=== PATIENT | female | born 1940 | race Hispanic/Latino ===

== ENCOUNTER → 2019-08-31 | Outpatient (CLI) | payer OTHER ==
[2019-08-31] MEDS: REGADENOSON 0.4 MG/5 ML PF SYG IVP SCH (12:12)
== END | disposition home or self-care (01) ==
LOC: RAH 09:06
PROVIDERS: ATTEND Internal Medicine Cardiovascular Disease
DX: R06.02 Shortness of breath (principal)
CPT/HCPCS: 78452; 93017; 96374; A9500 ×2; J2785

== ENCOUNTER 2020-11-12 18:33 | Emergency (ER) | payer MEDICARE, OTHER ==
[2020-11-12] MEDS ORDERED: MECLIZINE HCL 25 MG TABLET ONE (19:39)
[2020-11-12] MEDS ORDERED: ACETAMINOPHEN EXTRA STRENGTH 500 MG TABLET ONE (19:39)
[2020-11-12 19:43] LABS: BASOPHILS % (AUTO) 0.6 % (0.0-5.0); EOSINOPHILS % (AUTO) 2.1 % (0.0-8.0); LYMPHOCYTES % (AUTO) 23.7 % (21.0-51.0); MEAN CORPUSCULAR VOLUME 97.1 fL (79-99); MONOCYTES % (AUTO) 7.3 % (3.0-13.0); PLATELET COUNT (AUTO) 228 K/uL (130-400); RED BLOOD CELL COUNT(AUTO) 4.12 MIL/uL (4.00-5.50); RED CELL DISTRIBUTION WIDTH 14.6 % (11.0-15.5)
[2020-11-12 19:52] LABS: CREATININE 0.8 mg/dL (0.5-1.5); POTASSIUM 4.8 mmol/L (3.5-5.1)
[2020-11-12 20:01] LABS: ALBUMIN 3.7 g/dL (3.5-5.0); BILIRUBIN,TOTAL 0.3 mg/dL (0.2-1.0); TOTAL PROTEIN, SERUM 7.7 g/dL (6.0-8.3)
== END 2020-11-12 20:50 | disposition home or self-care (01) ==
LOC: EDH 18:33
DX: R42 Dizziness and giddiness (principal); R07.89 Other chest pain; F41.9 Anxiety disorder, unspecified; I10 Essential (primary) hypertension; R53.1 Weakness; E03.9 Hypothyroidism, unspecified; E78.00 Pure hypercholesterolemia, unspecified; I25.10 Atherosclerotic heart disease of native coronary artery without angina pectoris; Z90.710 Acquired absence of both cervix and uterus; Z90.49 Acquired absence of other specified parts of digestive tract
CPT/HCPCS: 36415; 70450; 71045; 80053; 84484; 85025; 93005

== ENCOUNTER 2021-08-13 09:03 | Inpatient (IN) | payer MEDICARE ==
[~2021-08-13] VITALS: Ht 165.1 cm; Wt 93.9 kg
[2021-08-13 09:32] LABS: BASOPHILS % (AUTO) 0.4 % (0.0-5.0); EOSINOPHILS % (AUTO) 0.1 % (0.0-8.0); HEMATOCRIT 42.7 % (36-48); LYMPHOCYTES % (AUTO) 13.3 % (21.0-51.0); MEAN CORPUSCULAR HEMOGLOBIN 31.2 pg (27.0-33.0); MEAN CORPUSCULAR HGB CONC 31.6 g/dL (32.0-36.0); MEAN CORPUSCULAR VOLUME 98.6 fL (79-99); MONOCYTES % (AUTO) 10.7 % (3.0-13.0); NEUTROPHILS % (AUTO) 75.4 % (40.0-77.0); PLATELET COUNT (AUTO) 191 K/uL (130-400); RED BLOOD CELL COUNT(AUTO) 4.33 MIL/uL (4.00-5.50); RED CELL DISTRIBUTION WIDTH 14.8 % (11.0-15.5); WHITE BLOOD COUNT (AUTO) 7.3 K/uL (4.8-10.8)
[2021-08-13 09:41] LABS: CREATININE 1.2 mg/dL (0.5-1.5)
[2021-08-13 09:46] LABS: ALBUMIN 3.7 g/dL (3.5-5.0); BILIRUBIN,TOTAL 0.3 mg/dL (0.2-1.0)
[2021-08-13 09:56] LABS: B-TYPE NATRIURETIC PEPTIDE 138 pg/mL (0-100)
[2021-08-13 10:31] LABS: INR 1.05 (0.85-1.15); PROTHROMBIN TIME 11.4 SEC (9.6-11.6)
[2021-08-13] MEDS ORDERED: ENOXAPARIN SODIUM 100 MG/1 ML SQ SCH (12:00)
[2021-08-13] MEDS: ASPIRIN 81MG CHEW TAB PO SCH (12:19)
[2021-08-13] MEDS ORDERED: ONDANSETRON 4MG INJ IVP PRN (14:00)
[2021-08-13] MEDS: TRAMADOL HCL 50 MG TABLET PO SCH (15:00)
[2021-08-13] MEDS ORDERED: AMLO-257 PO (15:16)
[2021-08-13] MEDS ORDERED: OMEP40CA21 PO (15:17)
[2021-08-13] MEDS ORDERED: LOSA100T58 PO (15:17)
[2021-08-13] MEDS ORDERED: ROSU5TAB12 PO (15:18)
[2021-08-13] MEDS ORDERED: OXYB5TAB15 PO (15:18)
[2021-08-13] MEDS ORDERED: LEVO100 PO (15:20)
[2021-08-13] MEDS ORDERED: TRAM50TA4 PO (15:20)
[2021-08-13] MEDS ORDERED: ISOS10TA8 PO (15:21)
[2021-08-13] MEDS ORDERED: METO-391 PO (15:22)
[2021-08-13] MEDS ORDERED: CITA-106 PO (15:22)
[2021-08-13] MEDS ORDERED: PHARMACY COMMUNICATION MISC SCH (16:30)
[2021-08-13] MEDS: INSULIN HUMULIN R 100 UNIT/ML 3ML SQ SCH ×2 (16:30→21:00)
[2021-08-13] MEDS ORDERED: COMPOUND IV REFRIGERATED 1 EACH IVSOLN MISC PRN (17:00)
[2021-08-13] MEDS ORDERED: REMDESIVIR (EUA) 520 200 MG in 0.9% NACL 250ML 250 ML IV ONE (17:00)
[2021-08-13 21:44] VITALS: BP 139/58
[2021-08-13] MEDS: ATORVASTATIN 40 MG TABLET PO SCH (22:25)
[2021-08-13 23:08] VITALS: BP 142/75
[2021-08-14] VITALS (7 sets, daily range): BP systolic 119–163; BP diastolic 68–84
[2021-08-14] MEDS ORDERED: NITROGLYCERIN 0.4 MG SL TAB SL ONE (00:12)
[2021-08-14] MEDS ORDERED: NITROGLYCERIN 0.4 MG SL TAB SL PRN (00:30)
[2021-08-14 01:56] LABS: HEMOGLOBIN A1C 6.4 % (4.0-6.0)
[2021-08-14 02:11] LABS: CREATININE 0.9 mg/dL (0.5-1.5); POTASSIUM 3.7 mmol/L (3.5-5.1)
[2021-08-14 02:16] LABS: MAGNESIUM 2.1 mg/dL (1.80-2.40)
[2021-08-14] MEDS: TRAMADOL HCL 50 MG TABLET PO SCH ×2 (03:37→14:29)
[2021-08-14] MEDS: REMDESIVIR LABS MISC SCH (06:00)
[2021-08-14 06:17] LABS: ALBUMIN 3.1 g/dL (3.5-5.0); BILIRUBIN,DIRECT 0.1 mg/dL (0.0-0.3); BILIRUBIN,TOTAL 0.2 mg/dL (0.2-1.0); TOTAL PROTEIN, SERUM 6.9 g/dL (6.0-8.3)
[2021-08-14] MEDS: INSULIN HUMULIN R 100 UNIT/ML 3ML SQ SCH ×4 (06:25→21:00)
[2021-08-14] MEDS ORDERED: ASPIRIN 325MG EC TAB PO ONE (07:30)
[2021-08-14] MEDS: CLOPIDOGREL 75MG TAB PO SCH (08:51)
[2021-08-14] MEDS: ASPIRIN 81MG CHEW TAB PO SCH (08:52)
[2021-08-14] MEDS ORDERED: ENOXAPARIN SODIUM 30 MG/0.3 ML SQ SCH (09:00)
[2021-08-14] MEDS ORDERED: ASPIRIN 81MG CHEW TAB PO SCH ×2 (09:00)
[2021-08-14] MEDS: HEPARIN 25,000 UNITS/250ML D5W 250 ML IV SCH (12:18)
[2021-08-14] MEDS: REMDESIVIR (EUA) 520 100 MG in 0.9% NACL 250ML 250 ML IV SCH (16:07)
[2021-08-14] MEDS: ATORVASTATIN 40 MG TABLET PO SCH (22:56)
[2021-08-15] VITALS (8 sets, daily range): BP systolic 116–152; BP diastolic 60–84
[2021-08-15] MEDS: ACETAMINOPHEN 325 MG TAB PO PRN ×3 (01:29→13:25)
[2021-08-15] MEDS: TRAMADOL HCL 50 MG TABLET PO SCH ×2 (03:01→16:00)
[2021-08-15] MEDS: REMDESIVIR LABS MISC SCH (06:00)
[2021-08-15] MEDS: HEPARIN 25,000 UNITS/250ML D5W 250 ML IV SCH (06:20)
[2021-08-15] MEDS: INSULIN HUMULIN R 100 UNIT/ML 3ML SQ SCH ×2 (07:30→11:30)
[2021-08-15] MEDS: CLOPIDOGREL 75MG TAB PO SCH (08:32)
[2021-08-15] MEDS: ASPIRIN 81MG CHEW TAB PO SCH (08:32)
[2021-08-15 16:25] LABS: ALANINE AMINOTRANSFERASE 52 U/L (12-78); ALBUMIN 3.1 g/dL (3.5-5.0); ASPARTATE AMINOTRANSFERASE 52 U/L (10-37); BILIRUBIN,DIRECT < 0.1 mg/dL (0.0-0.3); BILIRUBIN,TOTAL 0.3 mg/dL (0.2-1.0); TOTAL PROTEIN, SERUM 6.4 g/dL (6.0-8.3)
[2021-08-15] MEDS: REMDESIVIR (EUA) 520 100 MG in 0.9% NACL 250ML 250 ML IV SCH (17:11)
[2021-08-15] MEDS: ATORVASTATIN 40 MG TABLET PO SCH (23:02)
[2021-08-16 03:00] VITALS: BP 140/68
[2021-08-16] MEDS: TRAMADOL HCL 50 MG TABLET PO SCH ×2 (04:26→15:33)
[2021-08-16 04:48] LABS: HEMATOCRIT 37.8 % (36-48); MEAN CORPUSCULAR HEMOGLOBIN 30.3 pg (27.0-33.0); MEAN CORPUSCULAR HGB CONC 31.2 g/dL (32.0-36.0); MEAN CORPUSCULAR VOLUME 96.9 fL (79-99); RED BLOOD CELL COUNT(AUTO) 3.9 MIL/uL (4.00-5.50); RED CELL DISTRIBUTION WIDTH 14.5 % (11.0-15.5); WHITE BLOOD COUNT (AUTO) 4.2 K/uL (4.8-10.8)
[2021-08-16 05:16] LABS: ALBUMIN 2.8 g/dL (3.5-5.0); BILIRUBIN,TOTAL 0.3 mg/dL (0.2-1.0); CREATININE 0.7 mg/dL (0.5-1.5); MAGNESIUM 1.9 mg/dL (1.80-2.40); POTASSIUM 3.9 mmol/L (3.5-5.1); TOTAL PROTEIN, SERUM 6.5 g/dL (6.0-8.3)
[2021-08-16] MEDS: REMDESIVIR LABS MISC SCH (06:00)
[2021-08-16] MEDS: HEPARIN 25,000 UNITS/250ML D5W 250 ML IV SCH (06:56)
[2021-08-16 08:00] VITALS: BP 129/74
[2021-08-16 08:43] VITALS: BP 129/74
[2021-08-16] MEDS: ASPIRIN 81MG CHEW TAB PO SCH (09:07)
[2021-08-16] MEDS: CLOPIDOGREL 75MG TAB PO SCH (09:08)
[2021-08-16 12:00] VITALS: BP 159/83
[2021-08-16] MEDS ORDERED: METOPROLOL SUCCINATE 50 MG TAB.SR.24H PO ONE (15:00)
[2021-08-16] MEDS: REMDESIVIR (EUA) 520 100 MG in 0.9% NACL 250ML 250 ML IV SCH (16:47)
[2021-08-16 17:00] VITALS: BP 145/67
[2021-08-16] MEDS ORDERED: METOPROLOL SUCCINATE 50 MG TAB.SR.24H PO SCH (17:00)
[2021-08-16 20:00] VITALS: BP 148/80
[2021-08-16] MEDS: METOPROLOL TARTRATE 25 MG TAB PO SCH (21:42)
[2021-08-16] MEDS: ATORVASTATIN 40 MG TABLET PO SCH (21:42)
[2021-08-17] VITALS (7 sets, daily range): BP systolic 94–164; BP diastolic 48–84
[2021-08-17] MEDS: TRAMADOL HCL 50 MG TABLET PO SCH ×5 (03:35→06:32)
[2021-08-17] MEDS: REMDESIVIR LABS MISC SCH (06:33)
[2021-08-17 07:16] LABS: ALBUMIN 2.8 g/dL (3.5-5.0); BILIRUBIN,DIRECT 0.1 mg/dL (0.0-0.3); BILIRUBIN,TOTAL 0.3 mg/dL (0.2-1.0); CREATININE 0.7 mg/dL (0.5-1.5); POTASSIUM 3.6 mmol/L (3.5-5.1); TOTAL PROTEIN, SERUM 6.4 g/dL (6.0-8.3)
[2021-08-17] MEDS: METOPROLOL TARTRATE 25 MG TAB PO SCH ×2 (09:21→20:12)
[2021-08-17] MEDS: ASPIRIN 81MG CHEW TAB PO SCH (09:21)
[2021-08-17] MEDS: CLOPIDOGREL 75MG TAB PO SCH (09:22)
[2021-08-17] MEDS: REMDESIVIR (EUA) 520 100 MG in 0.9% NACL 250ML 250 ML IV SCH (17:02)
[2021-08-17] MEDS: ATORVASTATIN 40 MG TABLET PO SCH (20:12)
[2021-08-17] MEDS: ACETAMINOPHEN 325 MG TAB PO PRN (20:12)
[2021-08-18] VITALS: BP 150/80
[2021-08-18 04:00] VITALS: BP 145/73
[2021-08-18] MEDS: ASPIRIN 81MG CHEW TAB PO SCH (08:40)
[2021-08-18] MEDS: CLOPIDOGREL 75MG TAB PO SCH (08:40)
[2021-08-18] MEDS: METOPROLOL TARTRATE 25 MG TAB PO SCH (08:57)
[2021-08-18 08:59] VITALS: BP 160/43
[2021-08-18 12:46] VITALS: BP 164/77
[2021-08-18 16:27] VITALS: BP 149/66
== END 2021-08-18 17:09 | disposition home or self-care (01) | DRG 177 ==
LOC: EDH 09:03 → EDHIP 13:33 → 2AH 21:00
PROVIDERS: ADMIT Internal Medicine Infectious Disease; ATTEND Internal Medicine Infectious Disease
PROC: XW033E5 Introduction of Remdesivir Anti-infective into Peripheral Vein, Percutaneous Approach, New Technology Group 5 (ICD-10-PCS; principal; 2021-08-13)
PROC: 5A0935A Assistance with Respiratory Ventilation, Less than 24 Consecutive Hours, High Flow/Velocity Cannula (ICD-10-PCS; 2021-08-15)
DX: U07.1 COVID-19 (principal); I21.4 Non-ST elevation (NSTEMI) myocardial infarction; J12.82 Pneumonia due to coronavirus disease 2019; J96.91 Respiratory failure, unspecified with hypoxia; I10 Essential (primary) hypertension; E11.9 Type 2 diabetes mellitus without complications; E03.9 Hypothyroidism, unspecified; H54.61 Unqualified visual loss, right eye, normal vision left eye; E78.5 Hyperlipidemia, unspecified; E66.9 Obesity, unspecified; Z79.02 Long term (current) use of antithrombotics/antiplatelets; Z90.710 Acquired absence of both cervix and uterus; Z79.82 Long term (current) use of aspirin; Z79.4 Long term (current) use of insulin; Z68.34 Body mass index [BMI] 34.0-34.9, adult
CPT/HCPCS: 36415; 70450; 71045; 80048; 80053; 80061; 80076; 82948; 83036; 83735; 83880; 84484; 85025; 85027; 85610; 85730; 87635; 93005; 93306; 93356; 99291; C9803; G0378; J1644; J1650; J7050

== ENCOUNTER → 2022-04-27 | Outpatient (CLI) | payer MEDICARE ==
[~2022-04-27] MED LIST: CITA-106 PO; ISOS10TA8 PO; LEVO100 PO; LOSA100T58 PO; OMEP40CA21 PO; OXYB5TAB15 PO; TRAM50TA4 PO
[2022-04-27 13:02] LABS: ALBUMIN 3.5 g/dL (3.5-5.0); CREATININE 1.1 mg/dL (0.5-1.5); POTASSIUM 3.6 mmol/L (3.5-5.1); TOTAL PROTEIN, SERUM 7.7 g/dL (6.0-8.3)
== END | disposition home or self-care (01) ==
LOC: LAB 11:12
PROVIDERS: ATTEND Student in an Organized Health Care Education/Training Program
DX: I10 Essential (primary) hypertension (principal)
CPT/HCPCS: 36415; 80053

== ENCOUNTER 2022-04-28 17:31 | Emergency (ER) | payer MEDICARE ==
[~2022-04-28] VITALS: Ht 162.6 cm; Wt 85.3 kg
[~2022-04-28 17:31] MED LIST changes: -IOHEXOL 350 MG/ML 100ML INFUS..BTL IV ONE
[2022-04-28] MEDS ORDERED: ORPHENADRINE CITRATE 30 MG/ML ML IM STA (17:49)
[2022-04-28] MEDS ORDERED: KETOROLAC 60 MG VIAL (30MG/ML) IM STA (17:49)
[2022-04-28 18:13] VITALS: BP 172/89
== END 2022-04-28 18:46 | disposition home or self-care (01) ==
LOC: EDH 17:31
DX: M54.31 Sciatica, right side (principal); F41.9 Anxiety disorder, unspecified; E78.00 Pure hypercholesterolemia, unspecified; I10 Essential (primary) hypertension; E03.9 Hypothyroidism, unspecified; I25.2 Old myocardial infarction; Z90.49 Acquired absence of other specified parts of digestive tract; Z98.890 Other specified postprocedural states; Z79.899 Other long term (current) drug therapy
CPT/HCPCS: 99285; 75574; 96372 ×2; J1885; J2360; Q9967

== ENCOUNTER → 2022-04-28 | Outpatient (CLI) | payer MEDICARE ==
[~2022-04-28] MED LIST changes: +IOHEXOL 350 MG/ML 100ML INFUS..BTL IV ONE
== END | disposition home or self-care (01) ==
LOC: RAH 09:09
PROVIDERS: ATTEND Student in an Organized Health Care Education/Training Program
DX: M47.815 Spondylosis without myelopathy or radiculopathy, thoracolumbar region (principal); J44.9 Chronic obstructive pulmonary disease, unspecified
CPT/HCPCS: 75574; Q9967

== ENCOUNTER → 2022-11-05 | Outpatient (CLI) | payer MEDICARE ==
[2022-11-05 12:21] LABS: BASOPHILS % (AUTO) 0.7 % (0.0-5.0); HEMATOCRIT 41.5 % (36-48); MEAN CORPUSCULAR HGB CONC 31.8 g/dL (32.0-36.0); MEAN CORPUSCULAR VOLUME 97.4 fL (79-99); PLATELET COUNT (AUTO) 221 K/uL (130-400); RED BLOOD CELL COUNT(AUTO) 4.26 MIL/uL (4.00-5.50); RED CELL DISTRIBUTION WIDTH 15.1 % (11.0-15.5); WHITE BLOOD COUNT (AUTO) 7.2 K/uL (4.8-10.8)
[2022-11-05 12:44] LABS: HEMOGLOBIN A1C 6.1 % (4.0-6.0)
[2022-11-05 12:53] LABS: ALBUMIN 3.6 g/dL (3.5-5.0); CREATININE 0.9 mg/dL (0.5-1.5); POTASSIUM 4.1 mmol/L (3.5-5.1); THYROID STIMULATING HORMONE 3.64 uIU/mL (0.36-3.74); TOTAL PROTEIN, SERUM 7.5 g/dL (6.0-8.3)
== END | disposition home or self-care (01) ==
LOC: LAB 09:26
PROVIDERS: ATTEND Student in an Organized Health Care Education/Training Program
DX: E78.5 Hyperlipidemia, unspecified (principal); I10 Essential (primary) hypertension; R60.0 Localized edema; Z79.899 Other long term (current) drug therapy
CPT/HCPCS: 36415; 80053; 80061; 83036; 84443; 85025

== ENCOUNTER 2022-12-10 09:00 | Emergency (ER) | payer MEDICARE ==
[~2022-12-10] VITALS: Ht 165.1 cm; Wt 89.8 kg
[~2022-12-10 09:00] MED LIST changes: -LOSA100T58 PO; +LOSA100T59 PO
[2022-12-10 09:21] LABS: BASOPHILS % (AUTO) 0.2 % (0.0-5.0); EOSINOPHILS % (AUTO) 1.2 % (0.0-8.0); HEMATOCRIT 44.8 % (36-48); MEAN CORPUSCULAR HEMOGLOBIN 30.7 pg (27.0-33.0); MEAN CORPUSCULAR HGB CONC 32.4 g/dL (32.0-36.0); MEAN CORPUSCULAR VOLUME 94.7 fL (79-99); MONOCYTES % (AUTO) 4.8 % (3.0-13.0); NEUTROPHILS % (AUTO) 78.4 % (40.0-77.0); PLATELET COUNT (AUTO) 264 K/uL (130-400); RED BLOOD CELL COUNT(AUTO) 4.73 MIL/uL (4.00-5.50); RED CELL DISTRIBUTION WIDTH 15.2 % (11.0-15.5); WHITE BLOOD COUNT (AUTO) 9.4 K/uL (4.8-10.8)
[2022-12-10] MEDS ORDERED: 0.9% NACL 500ML IV.SOLN 500 ML IV ONE (09:30)
[2022-12-10] MEDS ORDERED: ONDANSETRON 4MG INJ IVP ONE (09:30)
[2022-12-10] MEDS ORDERED: LOPERAMIDE HCL 2 MG CAP PO ONE (09:30)
[2022-12-10 09:36] VITALS: BP 127/67
[2022-12-10 09:36] LABS: ALBUMIN 3.6 g/dL (3.5-5.0); CREATININE 1.4 mg/dL (0.5-1.5); POTASSIUM 4.4 mmol/L (3.5-5.1)
[2022-12-10] MEDS ORDERED: LOPE2CAP PO (10:42)
[2022-12-10] MEDS ORDERED: ONDA4TAB10 PO (10:42)
== END 2022-12-10 10:55 | disposition home or self-care (01) ==
LOC: EDH 09:00
DX: K52.9 Noninfective gastroenteritis and colitis, unspecified (principal); F41.9 Anxiety disorder, unspecified; E78.00 Pure hypercholesterolemia, unspecified; I10 Essential (primary) hypertension; E03.9 Hypothyroidism, unspecified; I25.2 Old myocardial infarction; Z79.899 Other long term (current) drug therapy; Z90.49 Acquired absence of other specified parts of digestive tract; Z20.822 Contact with and (suspected) exposure to COVID-19; Z90.710 Acquired absence of both cervix and uterus
CPT/HCPCS: 99283; 96374; 87426; 80053; 85025; 87804 ×2; 36415; J2405

== ENCOUNTER 2025-04-14 22:40 | Observation (INO) | payer MEDICARE ==
[~2025-04-14] VITALS: Ht 162.6 cm; Wt 81.6 kg
[~2025-04-14 22:40] MED LIST changes: -ISOS10TA8 PO; +ISOS10TA96 PO; +LOPE2CAP PO; +ONDA-243 PO; -OXYB5TAB15 PO; +OXYB5TAB20 PO
--- NOTE | 2025-04-14 22:51 | NUR ---
PATIENT REMOVED C COLLAR HERSELF STATED WAS VERY UNCOMFORTABLE, PATIENT EDUCATED IN POSSIBLE SPINAL INJURIES AND RISK OF PARALYSIS AND POSSIBLE .
--- NOTE | 2025-04-14 22:53 | NUR ---
DAUGHTER CRISTOBAL [phone]
--- NOTE | 2025-04-14 23:22 | ERN ---
ED Note History of Present Illness Stated Complaint: FALL Chief Complaint: Mechanical Fall Time Seen by MD: 22:47 Dictation: This is an 85-year-old female patient who came into the emergency room with her daughter with complaints of fall and severe shoulder and right upper arm pain. Patient apparently felt very dizzy and fell onto the right side of her body she also reported that she had hit her head on the right side associated with some nausea. This is about an hour prior to the presentation to the emergency room. No chest pain pressure palpitations or syncope. No headache blurred vision diplopia motor weakness or seizure activity. No history of any vomitings abdominal pain or diarrhea. No hematemesis or melena Her initial blood pressure was 210/99 heart rate 77 respirations 20, temperature 96.9 and pulse oximetry 96% on room air Her chronic medical problems include hypertension, hypercholesterolemia, hypothyroidism, coronary artery disease status post stents, history of [place], history of COVID and cervical cancer Allergies: Coded Allergies: No Known Allergies (Verified Allergy, Unknown, 08/31/19) Home Meds Active Scripts Loperamide HCl (Imodium 2 mg Cap) 2 Mg Capsule, 2 MG PO TID PRN for DIARRHEA, #7 CAP Prov:JUAN J SHEIKH MD 12/10/22 Ondansetron (Ondansetron Odt) 4 Mg Tab.rapdis, 4 MG PO Q6HPRN PRN for nausea, #16 TAB 0 Refills Prov:JUAN J SHEIKH MD 12/10/22 Reported Medications Citalopram Hydrobromide (Celexa 20Mg Tab) 20 Mg Tablet, 20 MG PO DAILY, TAB 08/13/21 Isosorbide Mononitrate (Isosorbide Mononitrate) 10 Mg Tablet, 10 MG PO DAILY, TAB 08/13/21 Tramadol Hcl (Tramadol HCl) 50 Mg Tablet, 50 MG PO DAILY PRN for PAIN LEVEL 7 TO 10, TAB 08/13/21 Levothyroxine Sodium (Levothroid/Synthroid) 100 Mcg Tab, 100 MCG PO DAILY, TAB 08/13/21 Oxybutynin Chloride (Oxybutynin Chloride) 5 Mg Tablet, 5 MG PO DAILY, TAB 08/13/21 Losartan Potassium (Losartan Potassium) 100 Mg Tablet, 100 MG PO DAILY, TAB 08/13/21 Omeprazole (Omeprazole) 40 Mg Capsule.dr, 40 MG PO DAILY, CAP 08/13/21 Past Medical History Past Medical History: Anxiety, Arthritis, High Cholesterol, Heart Disease, Hypertension, Hypothyroid, [place] Additional Past Medical Hx: THYROID, COVID, CERVICAL CANCER, Surgical History: Hysterectomy, Cholecystectomy, Other Surgical History Other: CARDIAC STENTS Social History: Negative History: Not Applicable RN Note Reviewed/Agreed w/PFSH: Yes Review of System Dictation Constitutional: Negative for fever,chills, and weight loss Eyes: Negative for injury, pain,redness, and discharge ENT: Negative for injury,pain or swelling Cardiovascular: Negative for chest pain, palpitations, and edema Respiratory: Negative for shortness of breath, cough, and wheezing, Abdomen/GI: Negative for abdominal pain, nausea, vomiting, diarrhea, and constipation Back: Negative for injury and pain : Negative for injury, bleeding and discharge MS/Extremity: Negative for injury and deformity Skin: Negative for rash, and discoloration Neuro: Negative for headache, weakness, numbness, tingling, and seizure Psych: Negative for suicide ideation, homicidal ideation, and hallucinations Initial Vital Sign VS Vital Signs Date Time Temp Pulse Resp B/P (MAP) Pulse Ox O2 Delivery O2 Flow Rate FiO2 04/14/25 22:41 97.0 77 20 210/99 96 Room Air 04/15/25 00:03 0 21 Physical Exam Dictation General: awake, alert, NAD Head/Face: Normocephalic, atraumatic Eyes: PERRL, EOMI, vision at baseline ENT: oral cavity clear, TMs clear, no signs of infection Neck: Trachea midline, supple, no nuchal rigidity Cardiovascular: RRR, normal S1/S2, No MRGs, no JVD Respiratory: CTAB, no respiratory distress, No rales or wheezes Abdomen: Soft, non-tender, non-distended, normal bowel sounds, no guarding or rebound. Skin: Warm, dry, normal turgor, no rash MS/Extremity: Pulses equal, no cyanosis, neurovascular intact, FROM Neuro: COAx4, GCS 15, strength 5/5, CN 2-12 intact, normal cerebellar exam, normal gait, Psych: Normal behavior, mood, and affect normal Extremities-trace edema without any palpable cords, Homans sign is negative Results (Laboratory/Radiology) Laboratory/Radiology Laboratory Tests Test 04/14/25 23:20 White Blood Count 10.3 K/uL (4.8-10.8) Red Blood Count 3.78 MIL/uL (4.00-5.50) L Hemoglobin 12.3 g/dL (12.0-16.0) Hematocrit 36.9 % (36-48) Mean Corpuscular Volume 97.6 fL (79-99) Mean Corpuscular Hemoglobin 32.5 pg (27.0-33.0) Mean Corpuscular Hemoglobin Concent 33.3 g/dL (32.0-36.0) Red Cell Distribution Width 15.6 % (11.0-15.5) H Platelet Count 243 K/uL (130-400) Mean Platelet Volume 9.6 fL (7.5-10.5) Immature Granulocyte % (Auto) 0.6 % (0-1) Neutrophils (%) (Auto) 80.8 % (40.0-77.0) H Lymphocytes (%) (Auto) 12.7 % (21.0-51.0) L Monocytes (%) (Auto) 4.0 % (3.0-13.0) Eosinophils (%) (Auto) 1.3 % (0.0-8.0) Basophils (%) (Auto) 0.6 % (0.0-5.0) Neutrophils # (Auto) 8.3 K/uL (1.8-7.7) H Lymphocytes # (Auto) 1.3 K/uL (1.0-4.8) Monocytes # (Auto) 0.4 K/uL (0.1-1.0) Eosinophils # (Auto) 0.13 K/uL (0.00-0.70) Basophils # (Auto) 0.06 K/uL (0.00-0.20) Absolute Immature Granulocyte (auto 0.06 K/uL (0-1) Nucleated Red Blood Cells 0.0 % (0.0-0.19) Sodium Level 139 mmol/L (136-145) Potassium Level 3.9 mmol/L (3.5-5.1) Chloride Level 102 mmol/L (101-111) Carbon Dioxide Level 30 mmol/L (21-32) Blood Urea Nitrogen 21 mg/dL (7-18) H Creatinine 0.8 mg/dL (0.5-1.0) Glomerular Filtration Rate Calc 72 mL/min (>90) Random Glucose 142 mg/dL (70-105) H Total Calcium 8.6 mg/dL (8.5-10.1) Total Creatine Kinase 94 U/L (21-232) Troponin I High Sensitivity 35.5 ng/L (4-50) Labs Reviewed?: Yes EKG Comment: 12 lead EKG done on 04/14/2025 at 11:20 p.m. showed a heart rate of 87, LA interval 174, QRS duration 88, QT/QTC 371/446 Impression normal sinus rhythm with a old Q-waves in the septal leads and anteroseptal leads. Otherwise nonspecific ST-T changes noted. No acute ST- elevation seen. EKG rhythm strip shows a normal sinus rhythm with no acute STT wave changes. Interpreted by ER MD Dr. Perry X-RAY Comment: REASON: FALL ORDERING PHYSICIAN: LORRAINE PERRY MD PROCEDURE: SHOL 2V RT - SHOULDER COMP 2+VWS RT EXAM: CR Right Shoulder, 2 views. CLINICAL HISTORY: Fall. COMPARISON: None. FINDINGS: Mildly displaced fracture of the right humeral neck. The remaining visualized bones are normal in cortical outline and show mild diffuse osteopenia. No aggressive osseous lesion. Moderate glenohumeral osteoarthritis. Mild acromioclavicular osteoarthritis. The soft tissues are unremarkable. IMPRESSION: Mildly displaced fracture of the right humeral neck. Mild diffuse osteopenia. Moderate glenohumeral osteoarthritis. Mild acromioclavicular osteoarthritis. /[place] DICTATED BY: LENARD PITTMAN Jr., MD DATE: 04/15/25125 ELECTRONICALLY SIGNED BY: LENARD PITTMAN Jr., MD DATE: 04/15/25125 REASON: CHEST PAIN ORDERING PHYSICIAN: LORRAINE PERRY MD PROCEDURE: CXR1VW - CHEST 1VW EXAM: CR Chest, 1 view. CLINICAL HISTORY: Chest pain. COMPARISON: Prior chest x-ray dated 11/12/2020. FINDINGS: Rotated film. The lungs show no infiltrate or other acute findings. No pleural effusion or pneumothorax. The cardiomediastinal silhouette is within normal limits. No acute osseous abnormality. Moderate degenerative osseous changes. IMPRESSION: No acute cardiopulmonary pathology is evident. No gross interval changes. /[place] DICTATED BY: LENARD PITTMAN Jr., MD DATE: 04/15/25123 ELECTRONICALLY SIGNED BY: LENARD PITTMAN Jr., MD DATE: 04/15/25123 CT Scan Comment: REASON: FALL ORDERING PHYSICIAN: LORRAINE PERRY MD PROCEDURE: C SPIN WO - CT CERVICAL SPINE W/O CONTRAST EXAM: CT Cervical Spine Without IV contrast. CLINICAL HISTORY: Fall. TECHNIQUE: Axial computed tomography images of the cervical spine without intravenous contrast. Sagittal and coronal reformatted images were generated. COMPARISON: None provided. FINDINGS: ALIGNMENT: Straightening of the cervical lordosis, which may represent paraspinal muscle spasm. Grade I anterolisthesis of C6 in relation to C7 without any spondylolysis. DEGENERATIVE CHANGES: Moderate cervical spondylosis with multilevel marginal osteophytes, facet arthropathy, and mild degenerative disc space reduction at C6-C7. Multilevel mild diffuse disc bulge at C5-C6 and C6-C7 levels in the form of disc osteophyte complex and bilateral uncovertebral joint spurring causing indentation on the anterior thecal sac and mild narrowing of the bilateral neural foramina. SOFT TISSUES: The prevertebral soft tissues are within normal limits. BONES: No acute fracture or aggressive appearing osseous lesion. IMPRESSION: No acute cervical spine abnormality. Moderate cervical spondylosis with multilevel marginal osteophytes, facet arthropathy, and mild degenerative disc space reduction at C6-C7. Multilevel mild diffuse disc bulge at C5-C6 and C6-C7 levels in the form of disc osteophyte complex and bilateral uncovertebral joint spurring causing indentation on the anterior thecal sac and mild narrowing of the bilateral neural foramina. Grade I anterolisthesis of C6 in relation to C7 without any spondylolysis. /[place] DICTATED BY: LENARD PITTMAN Jr., MD DATE: 04/15/25131 ELECTRONICALLY SIGNED BY: LENARD PITTMAN Jr., MD DATE: 04/15/25131 REASON: fall dizziness ORDERING PHYSICIAN: LORRAINE PERRY MD PROCEDURE: HEAD WO - CT HEAD/BRAIN W/O CONTRAST EXAM: CT Head Without IV contrast. CLINICAL HISTORY: Fall, dizziness. TECHNIQUE: Axial computed tomography images of the head/brain without intravenous contrast. COMPARISON: CT brain dated 08/13/21. FINDINGS: BRAIN: Diffuse age-related cerebral atrophy, characterized by dilatation of the lateral ventricles, prominence of the basal cisterns, cortical sulci, and bilateral sylvian fissures. Ill-defined hypodensities in the bilateral centrum semiovale. No evidence of acute hemorrhage. No mass lesion. No CT evidence for acute territorial infarct. No midline shift or extra-axial collections. VENTRICLES: No hydrocephalus. ORBITS: The orbits are unremarkable. SINUSES AND MASTOIDS: The paranasal sinuses and mastoid air cells are clear. BONES: No fracture. Hyperostosis frontalis interna. SOFT TISSUES: Unremarkable. IMPRESSION: No acute intracranial abnormality. Mild diffuse brain atrophy. Mild chronic small vessel ischemic disease. No gross interval changes. /[place] DICTATED BY: LENARD PITTMAN Jr., MD DATE: 04/15/25130 ELECTRONICALLY SIGNED BY: LENARD PITTMAN Jr., MD DATE: 04/15/25130 ED Course ED Course Orders Procedure Category Date Status Time Vital Signs Per CPOE 04/14/25 Transmitted Routine 23:10 Chest 1vw RAD 04/14/25 Resulted 23:10 12 Lead Ekg Tracing- EKG 04/14/25 Complete Technical 23:10 Oxygen By Nc/Pulse Ox CPOE 04/14/25 Transmitted 23:10 Maintain Iv CPOE 04/14/25 Transmitted 23:10 Iv Insertion CPOE 04/14/25 Transmitted 23:10 Cardiac Monitoring CPOE 04/14/25 Transmitted 23:10 Pulse Oximetry With CPOE 04/14/25 Transmitted Vs And Prn 23:10 Cbc With Differential LAB 04/14/25 Complete 23:10 Activity: Br W/Brp CPOE 04/14/25 Transmitted With Assist 23:10 Urinalysis Profile LAB 04/14/25 Logged 23:10 Basic Metabolic Panel LAB 04/14/25 Complete 23:10 Cardiac Panel LAB 04/14/25 Complete 23:09 12 Lead Ekg Tracing- EKG 04/14/25 Logged Technical 23:09 Morphine 2mg Syg PHA 04/14/25 Complete (Morphine 2mg Syg) 23:30 0.9% Nacl 500ml PHA 04/14/25 Complete Iv.Soln (Ns 500ml 23:30 Ct Head/Brain W/O CT 04/14/25 Resulted Contrast 23:09 Ct Cervical Spine W/O CT 04/14/25 Resulted Contrast 23:28 Shoulder Comp 2+Vws Rt RAD 04/14/25 Resulted 23:29 Sling XIMENA 04/15/25 In Process 00:42 Ondansetron 4mg Inj PHA 04/15/25 In Process (Zofran 4mg Inj) 01:30 Morphine 2mg Syg PHA 04/15/25 In Process (Morphine 2mg Syg) 01:30 Admit Orders ADM 04/15/25 Transmitted 01:14 Orthopedic Surgery CONPHYSVC 04/15/25 Transmitted Consult 01:16 Edm Admit Bridge Order ADM 04/15/25 Transmitted 01:16 Current Medications Medications (Trade) Dose Ordered Sig/Giancarlo Route PRN Reason Start Time Stop Time Status Last Admin Dose Admin Morphine Sulfate (morPHINE 2MG SYG) 2 mg ONCE ONCE IVP 04/14/25 23:30 04/14/25 23:31 DC 04/15/25 00:14 Morphine Sulfate (morPHINE 2MG SYG) 2 mg ONCE ONCE IVP 04/15/25 01:30 04/15/25 01:31 04/15/25 01:07 Ondansetron HCl (zoFRAN 4MG INJ) 4 mg ONCE ONCE IVP 04/15/25 01:30 04/15/25 01:31 04/15/25 01:07 Sodium Chloride 500 ml @ 0 mls/hr ONCE ONCE IV 04/14/25 23:30 04/14/25 23:31 DC 04/14/25 23:47 Vital Signs Date Time Temp Pulse Resp B/P (MAP) Pulse Ox O2 Delivery O2 Flow Rate FiO2 04/15/25 00:53 81 18 162/85 97 Room Air* 0 21 04/15/25 00:03 81 18 174/86 96 Room Air* 0 21 04/14/25 22:41 97.0 77 20 210/99 96 Room Air We will perform diagnostic labs, advanced imaging and administer medications according to the patient's complaint. Once the results are available, will review and personally interpreted the labs to rule out any acute life- threatening emergency the trach require immediate intervention and treatment. I will then re-evaluate the patient after treatment and diagnostic exams have return to determine whether the patient requires any further testing, can safely be discharged home or need further admission to hospital for additional treatment and evaluation. 11:55 p.m. labs reviewed CBC and BNP 7 are relatively acceptable. Troponins 35 CK 94. 12:40 a.m. imaging studies reviewed-CT scan of the head is negative for any fractures or intracranial hemorrhage. Cervical spine CT extensive DJD and spondylolisthesis. Right shoulder x-ray shows fracture of the humeral head with mild displacement. 12:48 a.m. I discussed with Dr. Wsetley Alcocer, orthopedic surgeon about the displaced humeral head fracture and he indicated that he would be seeing her in consultation Wednesday and discuss with the patient and family various options. I had a very long discussion with the patient and her daughter and updated them on all the labs and imaging studies and concern for the intractable pain of the right shoulder. I also updated them that in order to control the pain even long-term and retain the functional ability of the right shoulder, orthopedic consultation and opinion sought. I updated them on recommendation for admission to the hospital for pain management as well as surgical intervention as deemed necessary. They both are agreeable. 1:15 a.m. patient accepted by covering for Dr. Desiree Quintana for admission and further management Medical Decision Making MDM Differential diagnosis: Closed head injury, shoulder dislocation, humeral head fracture, shaft fracture, contusion, heme arthrosis Rationale: Tests considered and ordered secondary to shared decision making include: labs, ECG and radiology Previous outside records reviewed: Old ER visits. Risk of complication and/or morbidity or mortality of patient management: None Medications-Per medication reconciliation Need for hospitalization: Patient does meet criteria for hospitalization. Need for emergency major/minor surgery: No There are no social concerns with this patient. Prescription drug management Prescriptions will include symptomatic care Patient's prior external medical records from other ER visits were reviewed by me as indicated. Prior testing and results from previous visits were reviewed. Prior tests were taken into account with medical decision making and resource utilization, independent historian/historians were used to obtain complete medical history. I independently interpreted the test that were performed, results were reviewed by me and considered findings on radiology if ordered. Medical management and examination interpretation discussions were had by me with other qualified healthcare professionals as indicated for the patient's care. Problem List Problem List: (1) Fall from standing (2) Fracture of humeral head, right, closed (3) Intractable pain (4) Closed head injury (5) Hypertension (6) Hypothyroidism (7) CAD (coronary artery disease) DX & DISP Disposition: Inpatient Decision to Admit Time: 01:01 Departure Impression: Primary Impression: Fall from standing Additional Impressions: Closed head injury, Fracture of humeral head, right, closed, Hypertension, Hypothyroidism, CAD (coronary artery disease), Intractable pain Condition: Stable Additional Instructions: Patient was informed of all the diagnostic labs and procedures conducted in the emergency room today and demonstrated understanding of the results. I personally reviewed and interpreted all the diagnostic exams performed in the ER today. The patient will be admitted to the hospital for further treatment and evaluation. Disposition-admit to facility Condition-stable/guarded Course-uncertain at this time Pain status-decreased Assessment-exam unchanged Admission Certification- I certify that the patients status is appropriate and is based on my best clinical judgment and the patient's condition as documented in the medical records Referrals: CRISTOBAL MONTES MD (PCP) LORRAINE PERRY MD Apr 14, 2025 23:22
--- NOTE | 2025-04-14 23:24 | EKG ---
[facility] Test Date: 2025-04-14 Test Time: 23:20:10 Pat Name: VIVI SAENZ Department: ED Room: 327 Gender: F Labels Molder: [id number] : 1940 Requested By: LORRAINE YEE Order Number: [id number] Reading MD: Tu Garcia Measurements Intervals [place] Rate: 87 P: 61 TN: 174 QRS: 43 QRSD: 88 T: 67 QT: 371 QTc: 446 Interpretive Statements Sinus rhythm Anteroseptal infarct, age indeterminate Compared to ECG 08/13/2021 23:54:28 Myocardial infarct finding now present Left ventricular hypertrophy no longer present Electronically Signed On 04-15-2025 13:40:26 CDT by Tu Garcia Please click the below link to view image of tracing.
--- NOTE | 2025-04-14 23:31 | NUR ---
PATIENT AT CT SCAN.
[2025-04-14 23:35] LABS: IMMATURE GRANULOCYTE ABSOLUTE 0.06 K/uL (0-1); NUCLEATED RED BLOOD CELLS 0.0 % (0.0-0.19); PLATELET COUNT (AUTO) 243 K/uL (130-400); RED BLOOD CELL COUNT(AUTO) 3.78 MIL/uL (4.00-5.50); RED CELL DISTRIBUTION WIDTH 15.6 % (11.0-15.5); WHITE BLOOD COUNT (AUTO) 10.3 K/uL (4.8-10.8)
[2025-04-14 23:42] LABS: CREATININE 0.8 mg/dL (0.5-1.0); GLOMERULAR FILTR. RATE CALC 72.0 mL/min (>90); GLUCOSE,RANDOM 142.0 mg/dL (70-105); SODIUM SERUM 139.0 mmol/L (136-145); UREA NITROGEN, BLOOD 21.0 mg/dL (7-18)
[2025-04-14] MEDS: 0.9% NACL 500ML IV.SOLN 500 ML IV ONE (23:47)
--- NOTE | 2025-04-14 23:48 | NUR ---
PHARMACY TO GET MORPHINE TO FOR PATIENT.
[2025-04-14 23:51] LABS: CREATINE KINASE, TOTAL 94.0 U/L (21-232)
[2025-04-15] VITALS (9 sets, daily range): BP systolic 122–151; BP diastolic 40–92; PULSE 20–94; RESP 16–20; TEMP 91–98.2; O2SAT 94–96
--- NOTE | 2025-04-15 00:24 | HMCIMG ---
EXAM: CR Chest, 1 view. CLINICAL HISTORY: Chest pain. COMPARISON: Prior chest x-ray dated 11/12/2020. FINDINGS: Rotated film. The lungs show no infiltrate or other acute findings. No pleural effusion or pneumothorax. The cardiomediastinal silhouette is within normal limits. No acute osseous abnormality. Moderate degenerative osseous changes. IMPRESSION: No acute cardiopulmonary pathology is evident. No gross interval changes. /[place]
--- NOTE | 2025-04-15 00:27 | HMCIMG ---
EXAM: CR Right Shoulder, 2 views. CLINICAL HISTORY: Fall. COMPARISON: None. FINDINGS: Mildly displaced fracture of the right humeral neck. The remaining visualized bones are normal in cortical outline and show mild diffuse osteopenia. No aggressive osseous lesion. Moderate glenohumeral osteoarthritis. Mild acromioclavicular osteoarthritis. The soft tissues are unremarkable. IMPRESSION: Mildly displaced fracture of the right humeral neck. Mild diffuse osteopenia. Moderate glenohumeral osteoarthritis. Mild acromioclavicular osteoarthritis. [facility] [place]
--- NOTE | 2025-04-15 00:32 | HMCIMG ---
EXAM: CT Head Without IV contrast. CLINICAL HISTORY: Fall, dizziness. TECHNIQUE: Axial computed tomography images of the head/brain without intravenous contrast. COMPARISON: CT brain dated 08/13/21. FINDINGS: BRAIN: Diffuse age-related cerebral atrophy, characterized by dilatation of the lateral ventricles, prominence of the basal cisterns, cortical sulci, and bilateral sylvian fissures. Ill-defined hypodensities in the bilateral centrum semiovale. No evidence of acute hemorrhage. No mass lesion. No CT evidence for acute territorial infarct. No midline shift or extra-axial collections. VENTRICLES: No hydrocephalus. ORBITS: The orbits are unremarkable. SINUSES AND MASTOIDS: The paranasal sinuses and mastoid air cells are clear. BONES: No fracture. Hyperostosis frontalis interna. SOFT TISSUES: Unremarkable. IMPRESSION: No acute intracranial abnormality. Mild diffuse brain atrophy. Mild chronic small vessel ischemic disease. No gross interval changes. /[place]
--- NOTE | 2025-04-15 00:33 | HMCIMG ---
EXAM: CT Cervical Spine Without IV contrast. CLINICAL HISTORY: Fall. TECHNIQUE: Axial computed tomography images of the cervical spine without intravenous contrast. Sagittal and coronal reformatted images were generated. COMPARISON: None provided. FINDINGS: ALIGNMENT: Straightening of the cervical lordosis, which may represent paraspinal muscle spasm. Grade I anterolisthesis of C6 in relation to C7 without any spondylolysis. DEGENERATIVE CHANGES: Moderate cervical spondylosis with multilevel marginal osteophytes, facet arthropathy, and mild degenerative disc space reduction at C6-C7. Multilevel mild diffuse disc bulge at C5-C6 and C6-C7 levels in the form of disc osteophyte complex and bilateral uncovertebral joint spurring causing indentation on the anterior thecal sac and mild narrowing of the bilateral neural foramina. SOFT TISSUES: The prevertebral soft tissues are within normal limits. BONES: No acute fracture or aggressive appearing osseous lesion. IMPRESSION: No acute cervical spine abnormality. Moderate cervical spondylosis with multilevel marginal osteophytes, facet arthropathy, and mild degenerative disc space reduction at C6-C7. Multilevel mild diffuse disc bulge at C5-C6 and C6-C7 levels in the form of disc osteophyte complex and bilateral uncovertebral joint spurring causing indentation on the anterior thecal sac and mild narrowing of the bilateral neural foramina. Grade I anterolisthesis of C6 in relation to C7 without any spondylolysis. /[place]
--- NOTE | 2025-04-15 01:02 | NUR ---
DAUGHTER AT BEDSIDE.
[2025-04-15] MEDS ORDERED: ATOR40TA71 PO (02:17)
[2025-04-15] MEDS ORDERED: NETA2.5D3 OS (02:20)
[2025-04-15] MEDS ORDERED: NIFE-40 PO (02:20)
--- NOTE | 2025-04-15 02:30 | NUR ---
ADMISSION NOTE PATIENT ARRIVED FROM ER KERON RAPHAEL RN PRESENT AT BEDSIDE. PATIENT SLID TO HOSPITAL BED, PROVIDED GOWN. ASSESSED SKIN WITH AYANNA HARTMAN. DUAL SKIN CHECK REVEALED NO OBVIOUS FURTHER INJURY TO SKIN. DAUGHTER OF PATIENT, CRISTOBAL MIDDLETON, AT BEDSIDE AT THIS TIME. PATIENT ABLE TO COMMUNICATE NEEDS, ALERT AND ORIENTED. CONFIRMED HOME MEDICATIONS WITH DAUGHTER CRISTOBAL. RECONCILED MEDICATIONS WITH PATIENT AND DAUGHTER. RESUMED MEDICATIONS PER DR. MIN'S WRITTEN ORDERS. CALL LIGHT WITHIN REACH OF PATIENT.
[2025-04-15 02:52] LABS: APPEARANCE,URINE CLEAR (CLEAR); GLUCOSE, URINE (UA) NEGATIVE (NEGATIVE); LEUKOCYTE ESTERASE ,URINE NEGATIVE Leu/uL (NEGATIVE); NITRATE,URINE NEGATIVE (NEGATIVE); OCCULT BLOOD,URINE NEGATIVE (NEGATIVE)
[2025-04-15 02:53] LABS: ADD UA MICROSCOPIC NO
[2025-04-15 07:36] LABS: IMMATURE GRANULOCYTE ABSOLUTE 0.03 K/uL (0-1); NUCLEATED RED BLOOD CELLS 0.0 % (0.0-0.19); PLATELET COUNT (AUTO) 231 K/uL (130-400); RED BLOOD CELL COUNT(AUTO) 3.56 MIL/uL (4.00-5.50); RED CELL DISTRIBUTION WIDTH 15.5 % (11.0-15.5); WHITE BLOOD COUNT (AUTO) 10.1 K/uL (4.8-10.8)
[2025-04-15 07:51] LABS: CREATININE 0.8 mg/dL (0.5-1.0); GLOMERULAR FILTR. RATE CALC 72.0 mL/min (>90); GLUCOSE,RANDOM 131.0 mg/dL (70-105); SODIUM SERUM 139.0 mmol/L (136-145); UREA NITROGEN, BLOOD 18.0 mg/dL (7-18)
--- NOTE | 2025-04-15 15:29 | HP ---
INFECTIOUS DISEASE HISTORY & PHYSICAL NOTE Date of Service: Apr 15, 2025 HISTORY OF PRESENT ILLNESS: This is an 85-year-old female patient with medical history of hypertension, hypothyroidism, dyslipidemia, anxiety, arthritis, right eye blindness, coronary disease and cervical cancer who was brought to the emergency room for evaluation after sustaining a fall at home and patient experiencing severe pain to the right shoulder. Patient stated she fell on her right side. Bruising observed on bilateral knees. Stated she hit the right knee on the floor and believes she hit the left knee on the sofa. A urinalysis was negative. No fever, no dysuria, no cough no nausea or vomiting. CT of the head was negative for intracranial bleeding. A CT of the lumbar spine showed anterolisthesis of C6 in relation to C7 and a right shoulder x-ray showed a displaced fracture of the right humeral neck. Orthopedic surgeon has been consulted and pending evaluation. Patient wearing a right arm sling. Home medications has been reviewed and reconciled. We will continue pain management with hydromorphone and tramadol. REVIEW OF SYSTEMS CONSTITUTIONAL: Anxiety. HEAD/FACE: No signs of trauma. EENT: Denies eye pain, blurred vision, double vision, or light sensitivity. RESPIRATORY: Denies shortness of breath, cough, wheezing CARDIOVASCULAR: Denies chest pain, palpitation, syncope GASTROINTESTINAL/ABDOMINAL: Denies abdominal pain, constipation, diarrhea, nausea or vomiting. GENITOURINARY: Denies dysuria or hematuria. MUSCULOSKELETAL: Denies joint pain, tenderness, or trauma. Severe right shoulder pain. INTEGUMENTARY: Denies rash or itchiness NEUROLOGICAL/PSYCH: Denies anxiety, depression, heat or cold intolerance. 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 Cervical cancer. Coronary artery disease. Myocardial infarction. Hypothyroidism. Hypertension. Dyslipidemia. Anxiety. Arthritis. PAST SURGICAL HISTORY: Hysterectomy. Heart stents. Cholecystectomy. Right eye surgery. PAST SOCIAL HISTORY: Patient smoked for 40 years but denies current use of tobacco, alcohol or any other illicit drug. FAMILY HISTORY: Father had liver cancer and her brother had a heart attack with open heart surgery. Coded Allergies: No Known Allergies (Verified Allergy, Unknown, 08/31/19) PHYSICAL EXAM EYES: Anicteric. Pupils equal and reactive. HENT: No oral thrush seen, moist Oral mucosa. Blind on the right eye due to glaucoma. NECK: Supple, no JVD or thyromegaly. LUNGS: Good air entry. No rales, no rhonchi. CARDIOVASCULAR: S1, S2 regular. No murmur heard. ABDOMEN: Soft, non tender, bowel sounds present, no organomegaly. CENTRAL NERVOUS SYSTEM: Awake, alert, oriented x 3. SKIN: No rashes, no swelling. LYMPHATICS: No peripheral lymphadenopathy. MUSCULOSKELETAL: No joint swelling, erythema or tenderness. Right humeral neck fracture with arm sling in place. EXTREMITIES: No cyanosis or clubbing. BACK: No deformity, no pressure ulcer. GENITOURINARY: No dysuria or hematuria. Vital Sign (Last 12 Hours) 04/15/25 04/15/25 04/15/25 04/15/25 04:00 05:11 08:00 11:09 Temp 97.9 97.9 98.1 Pulse 91 86 94 Resp 20 20 16 B/P (MAP) 129/87 132/92 149/78 Pulse Ox 96 96 94 94 O2 Delivery Room Air Nasal Cannula Room Air Room Air* O2 Flow Rate 0 FiO2 21 21 LABS: Laboratory: Test 04/15/25 07:30 04/15/25 02:35 04/14/25 23:20 Range/Units White Blood Count 10.1 4.8-10.8 K/uL Red Blood Count 3.56 L 4.00-5.50 MIL/uL Hemoglobin 11.6 L 12.0-16.0 g/dL Hematocrit 34.8 L 36-48 % Mean Corpuscular Volume 97.8 79-99 fL Mean Corpuscular Hemoglobin 32.6 27.0-33.0 pg Mean Corpuscular Hemoglobin Concent 33.3 32.0-36.0 g/dL Red Cell Distribution Width 15.5 11.0-15.5 % Platelet Count 231 130-400 K/uL Mean Platelet Volume 9.6 7.5-10.5 fL Immature Granulocyte % (Auto) 0.3 0-1 % Neutrophils (%) (Auto) 82.7 H 40.0-77.0 % Lymphocytes (%) (Auto) 12.0 L 21.0-51.0 % Monocytes (%) (Auto) 4.5 3.0-13.0 % Eosinophils (%) (Auto) 0.1 0.0-8.0 % Basophils (%) (Auto) 0.4 0.0-5.0 % Neutrophils # (Auto) 8.4 H 1.8-7.7 K/uL Lymphocytes # (Auto) 1.2 1.0-4.8 K/uL Monocytes # (Auto) 0.5 0.1-1.0 K/uL Eosinophils # (Auto) 0.01 0.00-0.70 K/uL Basophils # (Auto) 0.04 0.00-0.20 K/uL Absolute Immature Granulocyte (auto 0.03 0-1 K/uL Nucleated Red Blood Cells 0.0 0.0-0.19 % Sodium Level 139 136-145 mmol/L Potassium Level 4.2 3.5-5.1 mmol/L Chloride Level 102 101-111 mmol/L Carbon Dioxide Level 33 H 21-32 mmol/L Blood Urea Nitrogen 18 7-18 mg/dL Creatinine 0.8 0.5-1.0 mg/dL Glomerular Filtration Rate Calc 72 >90 mL/min Random Glucose 131 H 70-105 mg/dL Total Calcium 8.3 L 8.5-10.1 mg/dL Magnesium Level 2.20 1.80-2.40 mg/dL Urine Color COLORLESS YELLOW Urine Appearance CLEAR CLEAR Urine pH 6.5 5.0-8.0 Urine Specific [place] 1.013 1.001-1.031 Urine Protein NEGATIVE NEGATIVE mg/dL Urine Glucose (UA) NEGATIVE NEGATIVE mg/dL Urine Ketones NEGATIVE NEGATIVE mg/dL Urine Occult Blood NEGATIVE NEGATIVE Urine Nitrate NEGATIVE NEGATIVE Urine Bilirubin NEGATIVE NEGATIVE mg/dL Urine Urobilinogen 0.2 0.2-1.0 mg/dL Urine Leukocyte Esterase NEGATIVE NEGATIVE Jorge/uL Total Creatine Kinase 94 21-232 U/L Troponin I High Sensitivity 35.5 4-50 ng/L Current Medications Medications (Trade) Dose Ordered Sig/Giancarlo Route PRN Reason Start Time Stop Time Status Last Admin Dose Admin Acetaminophen (TYLenol 325MG TAB) 650 mg Q4H PRN PO PAIN LEVEL 1 TO 3 04/15/25 01:30 05/15/25 01:29 Atorvastatin Calcium (LIPItor 40MG) 40 mg DAILY PO 04/15/25 09:00 05/15/25 08:59 04/15/25 10:10 40 MG Citalopram Hydrobromide (CeleXA 20MG TAB) 20 mg DAILY PO 04/15/25 09:00 05/15/25 08:59 04/15/25 10:10 20 MG Heparin Sodium (Porcine) (HEParin 5,000 UNIT VIAL) 5,000 unit Q12H SQ 04/15/25 01:30 05/15/25 01:29 04/15/25 14:04 5,000 UNIT Home Med (Home Medication) Netarsudil Mesylat/ Latanoprost (Rockla... HS OS 04/15/25 21:00 05/15/25 20:59 Hydromorphone HCl (DiLAUDid 0.5MG INJ) 0.5 mg Q6H PRN IVP SEVERE PAIN (7-10) 04/15/25 05:30 04/20/25 05:29 04/15/25 11:54 0.5 MG Levothyroxine Sodium (SYNTHroid 100MCG TAB) 100 mcg SYN PO 04/15/25 06:30 05/15/25 06:29 04/15/25 05:35 100 MCG Losartan Potassium (CozAAR 100MG TAB) 100 mg DAILY PO 04/15/25 09:00 05/15/25 08:59 04/15/25 10:09 100 MG Morphine Sulfate (morPHINE 2MG SYG) 2 mg Q6H PRN IVP SEVERE PAIN (7-10) 04/15/25 01:30 04/15/25 05:10 DC Nifedipine (adALAT 30MG) 30 mg HS PO 04/15/25 21:00 05/15/25 20:59 Ondansetron HCl (zoFRAN 4MG INJ) 4 mg Q6H PRN IVP NAUSEA/VOMITING 04/15/25 01:30 05/15/25 01:29 Oxybutynin Chloride (oxyBUTYnin chloRIDE) 5 mg DAILY PO 04/15/25 09:00 05/15/25 08:59 04/15/25 10:10 5 MG Pantoprazole Sodium (PROTonix 40MG TAB) 40 mg DAILY PO 04/15/25 09:00 05/15/25 08:59 04/15/25 10:10 40 MG Tramadol HCl (UltRAM) 50 mg Q6H PRN PO PAIN LEVEL 4 TO 6 04/15/25 01:30 04/20/25 01:29 04/15/25 02:38 50 MG DIAGNOSTICS / RADIOLOGY: PATIENT: VIVI SAENZ MR#: [id number] : 1940 SEX: F AGE: 85 LOCATION: [facility] ORDER 29 STATUS: REG ER REPORT#: [id number] SERVICE 28 REASON: FALL ORDERING PHYSICIAN: LORRAINE YEE MD PROCEDURE: SHOL 2V RT - SHOULDER COMP 2+VWS RT ADDENDUM REPORT ADDENDUM: Results were shared by telephone at 1:37 am on 04-15-25 and acknowledged by patient's nurse LICO Woods. /[place] EXAM: CR Right Shoulder, 2 views. CLINICAL HISTORY: Fall. COMPARISON: None. FINDINGS: Mildly displaced fracture of the right humeral neck. The remaining visualized bones are normal in cortical outline and show mild diffuse osteopenia. No aggressive osseous lesion. Moderate glenohumeral osteoarthritis. Mild acromioclavicular osteoarthritis. The soft tissues are unremarkable. IMPRESSION: Mildly displaced fracture of the right humeral neck. Mild diffuse osteopenia. Moderate glenohumeral osteoarthritis. Mild acromioclavicular osteoarthritis. /[place] DICTATED BY: LENARD PITTMAN Jr., MD DATE: 04/15/25139 ASSESSMENT: Right humeral neck displaced fracture. Status post mechanical fall. Hypertension. Hypothyroidism. Coronary artery disease. Anxiety. Arthritis. Right eye blindness. PLAN: Continue pain management. Continue with right arm sling. Fall precautions. CT of the head and the cervical spine obtained. Right shoulder x-ray obtained. Orthopedic surgeon has been consulted. Home medications has been reviewed and reconciled. This case was reviewed and discussed with my supervising physician Dr. Min and the above assessment and plan was formulated and agreed upon. ATTESTATION BY PHYSICIAN I have seen and examined the patient. I reviewed the documentation, medical decision making, and treatment plan as noted by the mid-level provider above. I agree with the findings and plan of care. JESSICA MIN MD, [facility] Apr 15, 2025 15:28
[2025-04-16] VITALS (7 sets, daily range): BP systolic 144–156; BP diastolic 74–92; PULSE 87–105; RESP 15–20; TEMP 98–99.9; O2SAT 92–94
--- NOTE | 2025-04-16 02:47 | CONS ---
REASON FOR CONSULT: Right proximal humerus fracture. HISTORY OF PRESENT ILLNESS: An 85-year-old who was walking with socks, slipped and fell, and hit her right shoulder. She denies any nausea, vomiting, fevers, chills, headache, or shortness of breath. No dizziness. No loss of consciousness. She came to the Emergency Room and I was asked to see her. PRIOR MEDICAL HISTORY: Anxiety, arthritis, high cholesterol, heart disease, hypertension, hypothyroidism, and previous [place]. Of note, her blood pressure when she came in was 210/99 with a heart rate of 77. Past medical history is also thyroid, COVID, and cervical cancer, hysterectomy surgery and a cholecystectomy. She has had cardiac stents placed as well. PHYSICAL EXAMINATION: GENERAL: She is an elderly female in no acute distress, sitting in bed with her family members. EXTREMITIES: She can flex and extend her hand, wrist, and elbow without difficulty. She has some pain with the elbow range of motion. Her compartments are soft. She has no significant ecchymosis around her right shoulder. Her skin is intact. Sensation is intact. She is neurovascularly intact in that right upper extremity. Compartments are soft. X-RAYS: Two views of the shoulder were obtained showing a proximal humerus fracture, which has some slight comminution, but no significant displacement is seen. IMPRESSION: Proximal humerus fracture. PLAN: At her age and with her injury, I think nonoperative treatment would be her best option. She does have fairly significant osteoarthritis, but with her blood pressure being what it is and the minimal displacement of the fracture, I think we will leave it alone. Follow her closely. If it displaces, we can plan a reverse shoulder arthroplasty at that point. This was explained to her. We will see her back in a week. TID: [id number] RECEIPT: [id number]
--- NOTE | 2025-04-16 14:16 | NUR ---
DCP:HOME Pt currently lives at home with her dgt Codie Bautista [phone]. pt does have a walker, cane, and shower chair at home. pt does not have a provider or home health. PCP is Dr. Codie Quintana and uses [facility] for any RX needs. At DC pt will want to go home and family can assist with transportation. Addendum: 04/16/25 at 1418 by MONA ARGUELLO SS Amended: Links added.
--- NOTE | 2025-04-16 16:25 | CONS ---
CONSULTATION NOTE Date of Service: Apr 16, 2025 Reason for Consultation: 2nd opinion right proximal humerus fracture Requesting Physician: HISTORY OF PRESENT ILLNESS: 85-year-old right-hand dominant female status post mechanical ground level fall with a injury to her right shoulder. She was brought to the emergency room here due to complaints of right shoulder pain and was found to have proximal humerus fracture. She was seen by Dr. PHILLIPS who recommended conservative management for the nondisplaced fracture and discussed that if the fracture displaces they can consider reverse shoulder arthroplasty at that point. The patient loose still having a lot of pain in her daughter requested a a 2nd opinion with me. REVIEW OF SYSTEMS CONSTITUTIONAL: Denies fever, chills, or fatigue. HEAD/FACE: No signs of trauma. EENT: Denies eye pain, blurred vision, double vision, or light sensitivity. RESPIRATORY: Denies shortness of breath, cough, wheezing CARDIOVASCULAR: Denies chest pain, palpitation, syncope GASTROINTESTINAL/ABDOMINAL: Denies abdominal pain, constipation, diarrhea, nausea or vomiting GENITOURINARY: Denies dysuria or hematuria. MUSCULOSKELETAL: Reports joint pain, tenderness, trauma. INTEGUMENTARY: Denies rash or itchiness NEUROLOGICAL/PSYCH: Denies anxiety, depression, heat or cold intolerance. PAST MEDICAL HISTORY: Heart disease with myocardial infarction 2-3 years ago Hypertension Hypothyroidism Hyperlipidemia Blindness in the right eye Arthritis PAST SURGICAL HISTORY: Hysterectomy secondary to cancer Cholecystectomy PAST SOCIAL HISTORY: Denies drugs or smoking. Is right-hand dominant. FAMILY HISTORY: Noncontributory. Coded Allergies: No Known Allergies (Verified Allergy, Unknown, 08/31/19) PHYSICAL EXAM EYES: Anicteric. Pterygium or other scar tissue over the right eye HENT: Moist Oral mucosa NECK: Supple LUNGS: Nonlabored breathing CARDIOVASCULAR: Regular rate ABDOMEN: Nondistended CENTRAL NERVOUS SYSTEM: Awake, alert, oriented x 3. No focal deficits, but a little slow to respond to questions SKIN: No lacerations, no abrasions, no ecchymosis LYMPHATICS: No peripheral lymphadenopathy MUSCULOSKELETAL: Patient is slumped down in bed with the right arm in a sling. She states that she is comfortable when we offered to reposition. Mild amount of edema with minimal ecchymosis over the right upper arm. Sensation intact distally in median, ulnar, radial nerve distributions. Ain, PIN, ulnar nerves are motor intact. EXTREMITIES: No cyanosis or clubbing BACK: Deferred GENITOURINARY: Deferred Vital Sign (Last 24 Hours) 04/15/25 04/16/25 20:00 12:00 Temp 99.1 Pulse 105 Resp 15 B/P (MAP) 144/87 Pulse Ox 91 O2 Delivery Room Air O2 Flow Rate 0 FiO2 21 Intake & Output (last 24hrs) 04/15/25 04/15/25 04/16/25 15:00 23:00 07:00 Output Total 500 ml Balance -500 ml LABS: Laboratory: Test 04/15/25 07:30 04/15/25 02:35 04/14/25 23:20 Range/Units White Blood Count 10.1 4.8-10.8 K/uL Red Blood Count 3.56 L 4.00-5.50 MIL/uL Hemoglobin 11.6 L 12.0-16.0 g/dL Hematocrit 34.8 L 36-48 % Mean Corpuscular Volume 97.8 79-99 fL Mean Corpuscular Hemoglobin 32.6 27.0-33.0 pg Mean Corpuscular Hemoglobin Concent 33.3 32.0-36.0 g/dL Red Cell Distribution Width 15.5 11.0-15.5 % Platelet Count 231 130-400 K/uL Mean Platelet Volume 9.6 7.5-10.5 fL Immature Granulocyte % (Auto) 0.3 0-1 % Neutrophils (%) (Auto) 82.7 H 40.0-77.0 % Lymphocytes (%) (Auto) 12.0 L 21.0-51.0 % Monocytes (%) (Auto) 4.5 3.0-13.0 % Eosinophils (%) (Auto) 0.1 0.0-8.0 % Basophils (%) (Auto) 0.4 0.0-5.0 % Neutrophils # (Auto) 8.4 H 1.8-7.7 K/uL Lymphocytes # (Auto) 1.2 1.0-4.8 K/uL Monocytes # (Auto) 0.5 0.1-1.0 K/uL Eosinophils # (Auto) 0.01 0.00-0.70 K/uL Basophils # (Auto) 0.04 0.00-0.20 K/uL Absolute Immature Granulocyte (auto 0.03 0-1 K/uL Nucleated Red Blood Cells 0.0 0.0-0.19 % Sodium Level 139 136-145 mmol/L Potassium Level 4.2 3.5-5.1 mmol/L Chloride Level 102 101-111 mmol/L Carbon Dioxide Level 33 H 21-32 mmol/L Blood Urea Nitrogen 18 7-18 mg/dL Creatinine 0.8 0.5-1.0 mg/dL Glomerular Filtration Rate Calc 72 >90 mL/min Random Glucose 131 H 70-105 mg/dL Total Calcium 8.3 L 8.5-10.1 mg/dL Magnesium Level 2.20 1.80-2.40 mg/dL Urine Color COLORLESS YELLOW Urine Appearance CLEAR CLEAR Urine pH 6.5 5.0-8.0 Urine Specific [place] 1.013 1.001-1.031 Urine Protein NEGATIVE NEGATIVE mg/dL Urine Glucose (UA) NEGATIVE NEGATIVE mg/dL Urine Ketones NEGATIVE NEGATIVE mg/dL Urine Occult Blood NEGATIVE NEGATIVE Urine Nitrate NEGATIVE NEGATIVE Urine Bilirubin NEGATIVE NEGATIVE mg/dL Urine Urobilinogen 0.2 0.2-1.0 mg/dL Urine Leukocyte Esterase NEGATIVE NEGATIVE Jorge/uL Total Creatine Kinase 94 21-232 U/L Troponin I High Sensitivity 35.5 4-50 ng/L DIAGNOSTICS / RADIOLOGY: Two views of the right shoulder show a right proximal humerus fracture with comminution but no displacement. There is evidence of the pre-existing glenohumeral arthritic changes. ASSESSMENT: Nondisplaced right proximal humerus comminuted fracture in the setting of pre- existing glenohumeral osteoarthritis PLAN: I discussed with the patient that since her fracture is nondisplaced and should be able to be managed non operatively, I am not recommending urgent surgery. We discussed the expected outcomes after reverse total shoulder arthroplasty. We discussed the risks and benefits of performing surgery. I discussed with her that if the fracture should displace the treatment would be a reverse total shoulder arthroplasty. We discussed that this could be performed more acutely with a that we would want to make sure her press smith helper says she is safe to undergo this procedure. We did explain to her that the pain we will still be present even if she undergoes surgery as she will then have surgical pain. She is going to discuss this further with her daughter and let me know how she would like to proceed. REY HAYNES MD Apr 16, 2025 16:25
--- NOTE | 2025-04-16 21:32 | PN ---
INFECTIOUS DISEASE PROGRESS NOTE Date of Service: Apr 16, 2025 SUBJECTIVE: During rounding today patient is in pain to the right arm on an movement. Stated the tramadol does not help her pain. We will discontinue tramadol and start Tylenol No. 3 as needed and continue with Dilaudid as currently ordered. Maintaining the right arm sling in place. During rounding today patient is pending evaluation from Dr. James as a 2nd opinion. PHYSICAL EXAM EYES: Anicteric. Pupils equal and reactive. HENT: No oral thrush seen, moist Oral mucosa. Blind on the right eye due to glaucoma. NECK: Supple, no JVD or thyromegaly. LUNGS: Good air entry. No rales, no rhonchi. CARDIOVASCULAR: S1, S2 regular. No murmur heard. ABDOMEN: Soft, non tender, bowel sounds present, no organomegaly. CENTRAL NERVOUS SYSTEM: Awake, alert, oriented x 3. SKIN: No rashes, no swelling. LYMPHATICS: No peripheral lymphadenopathy. MUSCULOSKELETAL: No joint swelling, erythema or tenderness. Right humeral neck fracture with arm sling in place. EXTREMITIES: No cyanosis or clubbing. BACK: No deformity, no pressure ulcer. GENITOURINARY: No dysuria or hematuria. Vital Sign (Last 12 Hours) 04/16/25 04/16/25 04/16/25 12:00 16:00 20:18 Temp 99.1 99.9 99.7 Pulse 105 105 96 Resp 15 16 18 B/P (MAP) 144/87 150/87 156/81 Pulse Ox 91 92 94 O2 Delivery Room Air Room Air Room Air Intake & Output (last 24hrs) 04/15/25 04/15/25 04/16/25 15:00 23:00 07:00 Output Total 500 ml Balance -500 ml LABS: Laboratory: Test 04/15/25 07:30 04/15/25 02:35 04/14/25 23:20 Range/Units White Blood Count 10.1 4.8-10.8 K/uL Red Blood Count 3.56 L 4.00-5.50 MIL/uL Hemoglobin 11.6 L 12.0-16.0 g/dL Hematocrit 34.8 L 36-48 % Mean Corpuscular Volume 97.8 79-99 fL Mean Corpuscular Hemoglobin 32.6 27.0-33.0 pg Mean Corpuscular Hemoglobin Concent 33.3 32.0-36.0 g/dL Red Cell Distribution Width 15.5 11.0-15.5 % Platelet Count 231 130-400 K/uL Mean Platelet Volume 9.6 7.5-10.5 fL Immature Granulocyte % (Auto) 0.3 0-1 % Neutrophils (%) (Auto) 82.7 H 40.0-77.0 % Lymphocytes (%) (Auto) 12.0 L 21.0-51.0 % Monocytes (%) (Auto) 4.5 3.0-13.0 % Eosinophils (%) (Auto) 0.1 0.0-8.0 % Basophils (%) (Auto) 0.4 0.0-5.0 % Neutrophils # (Auto) 8.4 H 1.8-7.7 K/uL Lymphocytes # (Auto) 1.2 1.0-4.8 K/uL Monocytes # (Auto) 0.5 0.1-1.0 K/uL Eosinophils # (Auto) 0.01 0.00-0.70 K/uL Basophils # (Auto) 0.04 0.00-0.20 K/uL Absolute Immature Granulocyte (auto 0.03 0-1 K/uL Nucleated Red Blood Cells 0.0 0.0-0.19 % Sodium Level 139 136-145 mmol/L Potassium Level 4.2 3.5-5.1 mmol/L Chloride Level 102 101-111 mmol/L Carbon Dioxide Level 33 H 21-32 mmol/L Blood Urea Nitrogen 18 7-18 mg/dL Creatinine 0.8 0.5-1.0 mg/dL Glomerular Filtration Rate Calc 72 >90 mL/min Random Glucose 131 H 70-105 mg/dL Total Calcium 8.3 L 8.5-10.1 mg/dL Magnesium Level 2.20 1.80-2.40 mg/dL Urine Color COLORLESS YELLOW Urine Appearance CLEAR CLEAR Urine pH 6.5 5.0-8.0 Urine Specific [place] 1.013 1.001-1.031 Urine Protein NEGATIVE NEGATIVE mg/dL Urine Glucose (UA) NEGATIVE NEGATIVE mg/dL Urine Ketones NEGATIVE NEGATIVE mg/dL Urine Occult Blood NEGATIVE NEGATIVE Urine Nitrate NEGATIVE NEGATIVE Urine Bilirubin NEGATIVE NEGATIVE mg/dL Urine Urobilinogen 0.2 0.2-1.0 mg/dL Urine Leukocyte Esterase NEGATIVE NEGATIVE Jorge/uL Total Creatine Kinase 94 21-232 U/L Troponin I High Sensitivity 35.5 4-50 ng/L ASSESSMENT: Right humeral neck displaced fracture. Status post mechanical fall. Hypertension. Hypothyroidism. Coronary artery disease. Anxiety. Arthritis. Right eye blindness. PLAN: Continue pain management. Continue with right arm sling. Continue with Fall precautions. Orthopedic surgeon has evaluated patient. Pending evaluation from Dr. James as a 2nd opinion. This case was reviewed and discussed with my supervising physician Dr. Min and the above assessment and plan was formulated and agreed upon. ATTESTATION BY PHYSICIAN I have seen and examined the patient. I reviewed the documentation, medical decision making, and treatment plan as noted by the mid-level provider above. I agree with the findings and plan of care. JESSICA MIN MD, [facility] Apr 16, 2025 21:32
[2025-04-17 00:09] VITALS: BP 154/89; PULSE 102; RESP 18; TEMP 98.9
[2025-04-17 04:36] VITALS: BP 156/83; PULSE 98; RESP 18; TEMP 98.7
[2025-04-17 08:00] VITALS: BP 131/60; PULSE 84; RESP 20; TEMP 98.3
[2025-04-17 08:53] VITALS: O2SAT 98
[2025-04-17 12:00] VITALS: BP 142/79; PULSE 83; RESP 19; TEMP 98.4
[2025-04-17 12:15] LABS: NUCLEATED RED BLOOD CELLS 0.0 % (0.0-0.19); PLATELET COUNT (AUTO) 197.0 K/uL (130-400); RED BLOOD CELL COUNT(AUTO) 3.28 MIL/uL (4.00-5.50); RED CELL DISTRIBUTION WIDTH 15.5 % (11.0-15.5); WHITE BLOOD COUNT (AUTO) 12.4 K/uL (4.8-10.8)
[2025-04-17 12:23] LABS: CREATININE 0.8 mg/dL (0.5-1.0); GLOMERULAR FILTR. RATE CALC 72.0 mL/min (>90); GLUCOSE,RANDOM 99.0 mg/dL (70-105); SODIUM SERUM 137.0 mmol/L (136-145); UREA NITROGEN, BLOOD 20.0 mg/dL (7-18)
[2025-04-17] MEDS ORDERED: PoTASSium chl 10% ELIXIR 20MEQ 20 MEQ/15 ML UDCUP PO PRN (13:30)
[2025-04-17] MEDS ORDERED: PoTASSium chloRIDE 20MEQ ER 20 MEQ ERTAB PO PRN (13:30)
--- NOTE | 2025-04-17 15:15 | NUR ---
DISCHARGE DC'D IV NO COMPLICATIONS. WRITTEN PRESCRIPTIONS HANDED TO PT. PT AWARE OF FOLLOW UP WITH DR. PHILLIPS ON AT 09:50AM. PHONE NUMBER PROVIDED. PT HAS SLING ON RT SHOULDER ON. DENIES PAIN AT THIS TIME. ASSISTED PT TO DRESS. PT ACKNOWLEDGED TEACHING. ANSWERED ALL QUESTIONS. PT WAITING FOR RIDE TO TAKE PT HOME.
--- NOTE | 2025-04-17 15:51 | DS ---
Discharge Summary Hospital Course This is an 85-year-old female patient with medical history of hypertension, hypothyroidism, dyslipidemia, anxiety, arthritis, right eye blindness, coronary disease and cervical cancer who was brought to the emergency room for evaluation after sustaining a fall at home and patient experiencing severe pain to the rig ht shoulder. Patient stated she fell on her right side. Bruising observed on bilateral knees. Stated she hit the right knee on the floor and believes she hit the left knee on the sofa. A urinalysis was negative. No fever, no dysuria, no cough no nausea or vomiting. CT of the head was negative for intracranial bleeding. A CT of the lumbar spine showed anterolisthesis of C6 in relation to C7 and a right shoulder x-ray showed a displaced fracture of the right humeral neck. Orthopedic surgeon has been consulted and pending evaluation. Patient wearing a right arm sling. Patient was evaluated by Dr. Alcocer and no surgical intervention was recommended. Dr. James evaluated patient as a 2nd opinion. ASSESSMENT: Right humeral neck displaced fracture. Status post mechanical fall. Hypertension. Hypothyroidism. Coronary artery disease. Anxiety. Arthritis. Right eye blindness. PLAN: Discharge patient to home today. Continue same home medications. Referred to new script for Tylenol # 3. Follow up with Dr. Erika Alcocer in 1 to 2 weeks. Follow up with PCP in 3-5 days. This case was reviewed and discussed with my supervising physician Dr. Winkler and the above assessment and plan was formulated and agreed upon. WESLEY ROBERTSON TRANSITIONAL CARE MANAGER Apr 17, 2025 15:51
== END 2025-04-17 16:55 | disposition home or self-care (01) ==
LOC: EDH 22:40 → INTOOBSV 04-15 01:14 → EDHIP 04-15 01:14 → 3DH 04-15 01:50
PROVIDERS: ADMIT Internal Medicine Infectious Disease; ATTEND Internal Medicine Infectious Disease
DX: S42.211A Unspecified displaced fracture of surgical neck of right humerus, initial encounter for closed fracture (principal); I10 Essential (primary) hypertension; E03.9 Hypothyroidism, unspecified; I25.10 Atherosclerotic heart disease of native coronary artery without angina pectoris; M19.019 Primary osteoarthritis, unspecified shoulder; F41.9 Anxiety disorder, unspecified; H54.61 Unqualified visual loss, right eye, normal vision left eye; I25.2 Old myocardial infarction; W01.0XXA Fall on same level from slipping, tripping and stumbling without subsequent striking against object, initial encounter; Y92.009 Unspecified place in unspecified non-institutional (private) residence as the place of occurrence of the external cause; Y93.01 Activity, walking, marching and hiking; Y93.89 Activity, other specified; Z85.41 Personal history of malignant neoplasm of cervix uteri; Z87.891 Personal history of nicotine dependence; Z90.710 Acquired absence of both cervix and uterus; Z95.5 Presence of coronary angioplasty implant and graft
CPT/HCPCS: 99285; 82550; 84484; 80048 ×3; 85025 ×2; 71045; 73030; 70450; 72125; 93005; 96374; 96376 ×2; 96372 ×3; 96375; 83735 ×2; 81003; 36415 ×3; 29105; 85027; J7040; J2270 ×2; J2405 ×2; J1644 ×6; J1171 ×5; G0378 ×2; 96360